=== PATIENT | female | born 1950 | race Caucasian/White ===

== ENCOUNTER → 2020-04-28 14:34 | Outpatient (BNVA) | payer MEDICARE, OTHER, SELFPAY | PROVIDERS: Family Provider Family Medicine; PCP Family Medicine; Visit Provider Podiatrist Foot & Ankle Surgery | DX: M79.672 Pain in left foot (principal) | CPT/HCPCS: 73630 ==

== ENCOUNTER 2020-06-07 11:25 | Outpatient (CLI) | payer MEDICARE, OTHER, SELFPAY ==
--- NOTE | 2020-06-07 11:34 | XRR_ITS ---
PROCEDURE INFORMATION: Exam: XR Right Knee Exam date and time: 06/07/2020 11:51 AM Age: 69 years old Clinical indication: Injury or trauma; Injury history: Twisted knee; Initial encounter; Sprain or strain; Patella or knee; Right; Additional info: Injury of R knee TECHNIQUE: Imaging protocol: XR Right knee. Views: 3 views. COMPARISON: No relevant prior studies available. FINDINGS: Bones/joints: Mild degenerative changes within the medial compartment reflected as mild joint space narrowing. Mild patellofemoral degenerative changes Soft tissues: Normal. XR/XR knee RT 3V* [id number] IMPRESSION: Mild degenerative changes most pronounced medially
== END 2020-06-07 11:26 | disposition home or self-care (01) ==
LOC: RAD 11:29
PROVIDERS: PCP Family Medicine; Visit Provider Nurse Practitioner Family
DX: S89.91XA Unspecified injury of right lower leg, initial encounter (principal); X58.XXXA Exposure to other specified factors, initial encounter
CPT/HCPCS: 73562

== ENCOUNTER → 2020-10-11 14:52 | Outpatient (BNVA) | payer MEDICARE, OTHER, SELFPAY | PROVIDERS: PCP Family Medicine; Referring Provider Nurse Practitioner Family; Visit Provider Orthopaedic Surgery | DX: M25.561 Pain in right knee (principal) | CPT/HCPCS: 73560; 73565 ==

== ENCOUNTER 2021-10-02 13:06 | Outpatient (CLI) | payer MEDICARE, OTHER, SELFPAY ==
[2021-10-02 13:45] VITALS: BP 138/82; PULSE 90; RESP 17; TEMP 36.9; O2SAT 97; BMI 23.3
[2021-10-02 14:24] VITALS: BP 125/71; PULSE 79; RESP 18; TEMP 36.8; O2SAT 97
[2021-10-02 15:24] VITALS: BP 139/76; PULSE 72; RESP 17; TEMP 36.9; O2SAT 98
== END 2021-10-02 13:07 | disposition home or self-care (01) ==
LOC: OPS 13:08
PROVIDERS: PCP Family Medicine; Visit Provider Nurse Practitioner Family
DX: U07.1 COVID-19 (principal)
CPT/HCPCS: 96365

== ENCOUNTER → 2023-01-10 07:37 | Outpatient (BNVA) | payer MEDICARE, OTHER, SELFPAY | PROVIDERS: PCP Family Medicine Adult Medicine; Visit Provider Family Medicine Adult Medicine | DX: E03.9 Hypothyroidism, unspecified (principal); E78.00 Pure hypercholesterolemia, unspecified; I10 Essential (primary) hypertension; I48.91 Unspecified atrial fibrillation; Z79.899 Other long term (current) drug therapy; Z51.81 Encounter for therapeutic drug level monitoring | CPT/HCPCS: 80053; 80061; 80162; 84443 ==

== ENCOUNTER → 2024-01-14 10:09 | Outpatient (BNVA) | payer MEDICARE, OTHER, SELFPAY | PROVIDERS: PCP Family Medicine Adult Medicine; Visit Provider Nurse Practitioner Family | DX: R05.9 Cough, unspecified (principal); R50.9 Fever, unspecified; J06.9 Acute upper respiratory infection, unspecified | CPT/HCPCS: 87400; 87426 ==

== ENCOUNTER → 2024-01-17 11:35 | Outpatient (BNVA) | payer MEDICARE, OTHER, SELFPAY | PROVIDERS: PCP Family Medicine Adult Medicine; Visit Provider Family Medicine Adult Medicine | DX: I10 Essential (primary) hypertension (principal); I48.91 Unspecified atrial fibrillation; E78.00 Pure hypercholesterolemia, unspecified; E03.9 Hypothyroidism, unspecified; J06.9 Acute upper respiratory infection, unspecified; I48.0 Paroxysmal atrial fibrillation; F41.8 Other specified anxiety disorders; B34.9 Viral infection, unspecified | CPT/HCPCS: 80053; 80061; 80162; 84443; 85025 ==

== ENCOUNTER 2024-10-13 15:55 | Outpatient (CLI) | payer MEDICARE, OTHER, SELFPAY ==
--- NOTE | 2024-10-13 15:58 | XRR_ITS ---
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 Views: 1 view hip with pelvis when performed. COMPARISON: No relevant prior studies available. FINDINGS: Bones/joints: Unremarkable. No acute fracture. Soft tissues: Unremarkable. XR/XR hip RT 2-3V wo/w pel* [id number] IMPRESSION: No acute findings.
--- NOTE | 2024-10-13 15:58 | XRR_ITS ---
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 Views: 2 or 3 views. COMPARISON: No relevant prior studies available. FINDINGS: Bones/joints: No fracture or other acute abnormality. The bones appear demineralized. Sagittal alignment is normal. There is a mild levo rotational curvature. Vertebral body and disc space heights are normal. Suspect lower lumbar facet arthropathy. Soft tissues: Unremarkable. XR/XR lumbar spine 2-3V* [id number] IMPRESSION: Nonacute findings.
--- NOTE | 2024-10-13 15:58 | XRR_ITS ---
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 Views: 3 views. COMPARISON: CR XR knees AP WB w RT lmt ORTH 10/11/2020 2:58 PM FINDINGS: Bones/joints: Minor degenerative changes in the medial joint compartment with small periarticular osteophytes and slight joint space narrowing. Soft tissues: Normal. XR/XR knee RT 3V* [id number] IMPRESSION: Nonacute findings.
== END 2024-10-13 15:56 | disposition home or self-care (01) ==
PROVIDERS: PCP Family Medicine; Visit Provider Family Medicine
DX: M25.551 Pain in right hip (principal); M25.561 Pain in right knee; M54.50 Low back pain, unspecified; Z85.830 Personal history of malignant neoplasm of bone; M25.761 Osteophyte, right knee; Z98.890 Other specified postprocedural states; Z85.3 Personal history of malignant neoplasm of breast
CPT/HCPCS: 72100; 73502; 73562

== ENCOUNTER → 2025-06-14 07:52 | Outpatient (BNVA) | payer MEDICARE, OTHER, SELFPAY | PROVIDERS: PCP Family Medicine; Visit Provider Family Medicine | DX: I10 Essential (primary) hypertension (principal); I48.0 Paroxysmal atrial fibrillation; Z51.81 Encounter for therapeutic drug level monitoring; Z79.899 Other long term (current) drug therapy; E78.00 Pure hypercholesterolemia, unspecified; E03.9 Hypothyroidism, unspecified | CPT/HCPCS: 80053; 80061; 80162; 84439; 84443; 85025 ==

== ENCOUNTER → 2025-09-08 10:22 | Outpatient (BNVA) | payer MEDICARE, OTHER, SELFPAY | PROVIDERS: PCP Family Medicine; Visit Provider Student in an Organized Health Care Education/Training Program | DX: M25.562 Pain in left knee (principal); M17.12 Unilateral primary osteoarthritis, left knee; Z01.89 Encounter for other specified special examinations | CPT/HCPCS: 73560; 73565 ==

== ENCOUNTER 2025-09-08 11:53 | Outpatient (CLI) | payer MEDICARE, OTHER, SELFPAY | END 2025-09-08 11:54 | disposition home or self-care (01) | LOC: SPT 11:53 | PROVIDERS: PCP Family Medicine; Visit Provider Student in an Organized Health Care Education/Training Program | DX: Z46.89 Encounter for fitting and adjustment of other specified devices (principal); M17.12 Unilateral primary osteoarthritis, left knee | CPT/HCPCS: 20610; J3301; J9999; L1812 ==